=== PATIENT | female | born 1945 ===

== ENCOUNTER → 2021-08-19 | Outpatient (CLI) | payer MEDICARE | END | disposition home or self-care (01) | LOC: LAB SHORT 17:40 → LAB 17:40 | DX: Z48.817 Encounter for surgical aftercare following surgery on the skin and subcutaneous tissue (principal); L08.9 Local infection of the skin and subcutaneous tissue, unspecified | CPT/HCPCS: 87070; 87077; 87186; 87205 ==

== ENCOUNTER 2022-06-08 07:40 | Day surgery (SDC) | payer MEDICARE ==
[~2022-06-08] VITALS: Ht 175.3 cm; Wt 80.3 kg
[2022-06-08] MEDS ORDERED: ELIQUIS5 M2 (08:11)
[2022-06-08] MEDS ORDERED: PRAV20 PO (08:12)
[2022-06-08] MEDS ORDERED: ANORO ELLIPTA1 EACH (08:12)
[2022-06-08] MEDS ORDERED: SPIRONOLACTONE1 EACH (08:13)
[2022-06-08] MEDS ORDERED: LOSA25 (08:13)
--- NOTE | 2022-06-08 08:20 | NUR ---
06/08/22 0820 Kandace Milligan TETRACAINE AT 0812 IN THE LEFT EYE, MICHEL AT 0815. CALL LIGHT WITHIN REACH
== END 2022-06-08 09:55 | disposition home or self-care (01) ==
LOC: ORSCSDS 07:40
PROVIDERS: Ophthalmology
PROC: 08RK3JZ Replacement of Left Lens with Synthetic Substitute, Percutaneous Approach (ICD-10-PCS; principal; 2022-06-08 09:00)
DX: H25.12 Age-related nuclear cataract, left eye (principal); J44.9 Chronic obstructive pulmonary disease, unspecified; E78.5 Hyperlipidemia, unspecified; I10 Essential (primary) hypertension; J45.909 Unspecified asthma, uncomplicated; Z85.038 Personal history of other malignant neoplasm of large intestine; Z85.828 Personal history of other malignant neoplasm of skin; Z79.899 Other long term (current) drug therapy
CPT/HCPCS: J2001; J2250; J3010; J3301; J7040; V2632

== ENCOUNTER 2022-06-24 07:40 | Day surgery (SDC) | payer MEDICARE ==
[~2022-06-24] VITALS: Ht 175.3 cm; Wt 79.9 kg
[~2022-06-24 07:40] MED LIST: ALDACTONE25 MG PO; ANORO ELLIPTA1 EACH; ANORO ELLIPTA1 EACH INH; ELIQUIS5 M2; LOSA25; PRAV20 PO; SPIRONOLACTONE1 EACH
--- NOTE | 2022-06-24 08:15 | NUR ---
06/24/22 0815 Jaelyn Mccormack TETRACAINE IN RIGHT EYE @ 0810 PLEDGET IN RIGHT EYE @ 0811 PLACED BY [facility]
== END 2022-06-24 09:38 | disposition home or self-care (01) ==
LOC: ORSCSDS 07:40
PROVIDERS: Ophthalmology
PROC: 08RJ3JZ Replacement of Right Lens with Synthetic Substitute, Percutaneous Approach (ICD-10-PCS; principal; 2022-06-24 09:00)
DX: H25.11 Age-related nuclear cataract, right eye (principal); Z96.1 Presence of intraocular lens; I10 Essential (primary) hypertension; R06.02 Shortness of breath; I42.9 Cardiomyopathy, unspecified; J44.9 Chronic obstructive pulmonary disease, unspecified; E78.5 Hyperlipidemia, unspecified; Z79.01 Long term (current) use of anticoagulants; Z79.899 Other long term (current) drug therapy
CPT/HCPCS: J2001; J2250; J3010; J3301; J7040; V2632

== ENCOUNTER 2023-04-18 08:59 | Day surgery (SDC) | payer MEDICARE ==
[~2023-04-18] VITALS: Ht 175.3 cm; Wt 80.0 kg
[2023-04-18] MEDS ORDERED: VITAMIN D310 MC4 (09:25)
[2023-04-18] MEDS ORDERED: OMEGA-3 FISH O1 EAC6 (09:26)
[2023-04-18] MEDS ORDERED: HAIR, SKIN AND1 EAC3 (09:26)
[2023-04-18] MEDS ORDERED: SPIR25 (09:26)
[2023-04-18] MEDS ORDERED: PRED PH-MOXI-BRO5 M1 (09:27)
[2023-04-18 09:37] VITALS: BP 115/53
--- NOTE | 2023-04-18 11:01 | NUR ---
04/18/23 1101 Rosemarie Yarbrough LATE ENTRY FOR TODAY DR. JEAN BAPTISTE IN TO ASSESS PATIENT, PLACED PULSE OX ON PT AND HR WAS 27. PTS HR UPON ADMITTANCE WAS 33. AFTER ASSESSING PT DR. JEAN BAPTISTE FELT THAT PT NEEDED FURTHER CARDIOLOGY WORKUP AND WOULD NOT BE APPROPRIATE FOR SEDATION TODAY. DR. JEAN BAPTISTE WANTS PT TO GO TO ER AND HAVE A 12 LEAD EKG AND POSSIBLE CARDIOLOGY CONSULT. IV WAS DC'D AND PT WAS WALKED TO ER BY RAGHAV SCHMITZ AND RAGHAV CARBAJAL. PT'S DAUGHTER WAS CONTACTED AND NOTIFIED OF CANELLATION OF COLONOSCOPY AND THAT PT WAS TAKEN TO THE ER.
== END 2023-04-18 10:30 | disposition home or self-care (01) ==
LOC: ORSCSDS 08:59
DX: Z85.038 Personal history of other malignant neoplasm of large intestine (principal); Z53.9 Procedure and treatment not carried out, unspecified reason
CPT/HCPCS: J7120

== ENCOUNTER 2023-04-18 10:36 | Emergency (ER) | payer MEDICARE ==
[~2023-04-18] VITALS: Ht 175.3 cm; Wt 79.8 kg
[~2023-04-18 10:36] MED LIST changes: +HAIR, SKIN AND1 EAC3; +OMEGA-3 FISH O1 EAC6; +PRED PH-MOXI-BRO5 M1; +SPIR25; +VITAMIN D310 MC4
[2023-04-18 11:41] LABS: BASOPHILS ABSOLUTE AUTO 0.03 K/mm3 (0.00-0.23); BASOPHILS PERCENT AUTO 1 % (0-2); EOSINOPHILS ABSOLUTE AUTO 0.06 K/mm3 (0.00-0.68); EOSINOPHILS PERCENT AUTO 1 % (0-6); Hematocrit 46.8 % (33.0-51.0); Hemoglobin 16.2 g/dL (11.5-16.0); IMMATURE GRAN ABSOLUTE AUTO 0.01 K/mm3 (0.00-0.10); IMMATURE GRAN PERCENT AUTO 0 % (0-1); LYMPHOCYTES ABSOLUTE AUTO 1.61 K/mm3 (0.84-5.20); LYMPHOCYTES PERCENT AUTO 25 % (21-46); MONOCYTES ABSOLUTE AUTO 0.32 K/mm3 (0.16-1.47); MONOCYTES PERCENT AUTO 5 % (4-13); Mean Corpuscular HGB 33.2 pg (26.0-34.0); Mean Corpuscular HGB Conc 34.6 g/dL (31.5-36.5); Mean Corpuscular Volume 96 fL (80-100); Mean Platelet Volume 10.3 fL (9.1-12.4); NEUTROPHILS ABSOLUTE AUTO 4.38 K/mm3 (1.96-9.15); NEUTROPHILS PERCENT AUTO 68 % (41-73); Platelet Count 235 K/mm3 (150-400); RDW Standard Deviation 41.8 fL (35.1-46.3); Red Blood Cell Count 4.88 M/mm3 (3.80-5.20); White Blood Cell Count 6.41 K/mm3 (4.00-11.30)
[2023-04-18 11:59] LABS: Albumin, Blood 4.6 g/dL (3.4-5.0); Albumin/Globulin Ratio 1.3 (0.8-1.8); Bilirubin, Total 0.8 mg/dL (0.1-1.0); Bun/Creatinine Ratio 12.6 (12.0-20.0); Calcium, Blood 10.1 mg/dL (8.5-10.1); Creatinine, Blood 1.43 mg/dL (0.40-1.00); Globulin, Blood 3.6 g/dL (2.2-4.0); Potassium, Blood 4.5 mmol/L (3.5-5.5); Total Protein, Blood 8.2 g/dL (6.4-8.2)
[2023-04-18 13:45] VITALS: BP 156/78
== END 2023-04-18 13:48 | disposition home or self-care (01) ==
LOC: ER 10:36
PROVIDERS: Student in an Organized Health Care Education/Training Program
DX: N17.9 Acute kidney failure, unspecified (principal); R00.1 Bradycardia, unspecified; Z88.8 Allergy status to other drugs, medicaments and biological substances; Z79.899 Other long term (current) drug therapy; I10 Essential (primary) hypertension; Z87.891 Personal history of nicotine dependence; J43.9 Emphysema, unspecified
CPT/HCPCS: 80053; 83735; 85025; 93246; 96360; 99284-25; J7030

== ENCOUNTER 2023-05-19 09:43 | Day surgery (SDC) | payer MEDICARE ==
[~2023-05-19] VITALS: Ht 175.3 cm; Wt 83.9 kg
[~2023-05-19 09:43] MED LIST changes: +ANORO ELLIPTA1 EAC1 IH; +POTCIT10 PO
[2023-05-19 10:18] VITALS: BP 139/77
[2023-05-19 10:20] VITALS: BP 139/77
--- NOTE | 2023-05-19 10:40 | NUR ---
PT'S DAUGHTER IN ROOM.
[2023-05-19 14:18] VITALS: BP 136/73
--- NOTE | 2023-05-19 14:26 | NUR ---
PATIENT RETURNED FROM THE [facility] S/P DPPM PLACEMENT. PATIENT IS IN A RECLINER. PLACED ON THE MONITOR AND SERVED BEVERAGE. VVS, [id number]. DR. JACKSON CALLED DAUGHTER AND UPDATED HER ON COMPLETION OF THE PROCEDURE.
[2023-05-19 14:32] VITALS: BP 168/79
--- NOTE | 2023-05-19 14:39 | NUR ---
DRESSING TO THE LEFT SHOULDER CDI. LUNCH SERVED AND PATIENT FEEDING SELF. O RAISING LEFT ARM ABOVE SHOULDER LEVEL.
[2023-05-19 14:45] VITALS: BP 165/132
[2023-05-19 15:00] VITALS: BP 175/108
--- NOTE | 2023-05-19 15:34 | NUR ---
PATIENT TO RADIOLOGY VIA WHEELCHAIR AND BACK. TOLERATED WELL. PATIENT TO THE RESTROOM ADN BACK TO RECLINER, PLACED BACK ON MIYA MONITOR, NO PAIN NOTED BUT MILD TENDERNESS NOTED TO LEFT SHOULDER SITE.
--- NOTE | 2023-05-19 17:31 | NUR ---
1720 STARTED ANCEF 2 GM PIV ORDERED BY DR. JACKSON PRIOR TO DISCHARGE.
--- NOTE | 2023-05-19 17:34 | NUR ---
SPOKE WITH DAUGHTER, PATIENT RIDE HOME AND SHE WILL DIPPER CLOCK AND WATCH HANDS HOME PRESCRIPTION OF [employer]EF[employer] ON HER WAY TO DIPPER CLOCK AND WATCH HANDS THE PATIENT FROM [facility].
--- NOTE | 2023-05-19 17:37 | NUR ---
1630 PACER REP WAS AT THE BEDSIDE AND PPM CHECK WAS PERFORMED. REPORT TO DR. JACKSON.
--- NOTE | 2023-05-19 18:30 | NUR ---
181 PIV REMOVED PRESSURE DRESSING APPLIED TO LEFT AC SITE. PATIENT DRESSED AND ALL BELONGING GATHERED. WHEEL CHAIR TO ENTRANCE AND MEET WITH JOCELYN AT 1830. REVIEWED DISCHARGE INSTRUCTIONS, FOLLOW UP APPOINTMENT AND MEDICATIONS WITH THE PATIENT AND DAUGHTER. NO FURTHER QUESITONS NOTED.
== END 2023-05-19 22:40 | disposition home or self-care (01) ==
LOC: MHTC 09:43
DX: I49.5 Sick sinus syndrome (principal); I45.5 Other specified heart block; I42.9 Cardiomyopathy, unspecified; I25.10 Atherosclerotic heart disease of native coronary artery without angina pectoris; I10 Essential (primary) hypertension; E78.5 Hyperlipidemia, unspecified; J44.9 Chronic obstructive pulmonary disease, unspecified; Z87.891 Personal history of nicotine dependence; Z86.711 Personal history of pulmonary embolism; Z88.8 Allergy status to other drugs, medicaments and biological substances; Z79.01 Long term (current) use of anticoagulants; Z79.899 Other long term (current) drug therapy
CPT/HCPCS: 33208; 71046; 99152; 99153; C1769; C1781; C1785; C1894; C1898; J0690; J1644; J2250; J3010; J7030; J7040